=== PATIENT | male | born 1985 | race Caucasian/White ===

== ENCOUNTER 2017-07-26 09:14 | Emergency (ER) | payer OTHER, MEDICAID, SELFPAY ==
[2017-07-26 09:30] VITALS: BP 139/99; PULSE 100; RESP 14; TEMP 37.1; O2SAT 97
--- NOTE | 2017-07-26 09:44 | DI.CT.S_ITS ---
PROCEDURE: CT ABDOMEN PELVIS W CON INDICATIONS: Right lower quadrant Pain TECHNIQUE: After the administration of intravenous contrast, 5 mm thick sections acquired from the diaphragm to the symphysis. 5 mm coronal and sagittal reformats were acquired. For radiation dose reduction, the following was used: automated exposure control, adjustment of mA and/or kV according to patient size. COMPARISON: None. FINDINGS: Image quality: Excellent. ABDOMEN: Lung bases: Lung bases are clear. Heart size is normal. Solid organs: Liver is normal in size and enhancement. Gallbladder is radiographically normal. Biliary system is non dilated. Pancreas enhances normally. Spleen is normal in size and enhancement. No adrenal nodules. Kidneys demonstrate normal size and enhancement, without hydronephrosis. Peritoneum and bowel: Normal appendix. Small bowel colon are normal caliber. There is diffuse fatty infiltration throughout the colon and through a majority of the small bowel. No perforation or obstruction. Nodes and vessels: No retroperitoneal or mesenteric adenopathy by size criteria. Aorta and inferior vena cava are normal in size. Miscellaneous: No ventral hernias. PELVIS: Genitourinary: Bladder wall thickness is normal. Miscellaneous: Small fat-containing inguinal hernias. No adenopathy. Bones: No suspicious bony lesions. No vertebral body compression fractures. IMPRESSION: 1. No CT evidence of acute pathology in the abdomen or pelvis. Radiographically normal appendix. 2. Diffuse fatty infiltration of the colon and majority of the small bowel may represent chronic inflammation. Please correlate for history of inflammatory bowel disease. Dictated by: Jordy Lipscomb M.D. on 07/26/2017 at 10:52 Approved by: Jordy Lipscomb M.D. on 07/26/2017 at 10:56
[2017-07-26 09:46] VITALS: BP 165/101; PULSE 94; RESP 14; O2SAT 96
[2017-07-26 10:06] LABS: Add Manual Diff / Slide Review NO; Basophils Percent Auto 0.8 % (0-2); Eosinophils Percent Auto 3.2 % (2-4); Hematocrit 44.3 % (41-53); Hemoglobin 15.9 g/dL (13.5-17.5); Lymphocytes Percent Auto 39.4 % (25-40); Mean Corpuscular Hemoglobin 28.7 PG (26-34); Mean Corpuscular Volume 79.7 fL (80-100); Neutrophils Absolute Auto 2200 /uL (3000-5900); Neutrophils Percent Auto 45.6 % (50-75); Platelet Count 258 X10^3/uL (150-400); Red Blood Cell Count 5.56 X10^6/uL (4.5-5.9); Red Cell Distribution Width 12.8 % (11.6-14.8); White Blood Cell Count 4.9 X10^3/uL (4.5-11.0)
[2017-07-26 10:17] LABS: Alanine Aminotransferase 54 IU/L (21-72); Albumin 4.6 g/dL (3.5-5.0); Albumin Globulin Ratio 1.3 (1.0-2.8); Alkaline Phosphatase 62 U/L (38-126); Aspartate Aminotransferase 35 IU/L (17-59); BUN Creatinine Ratio 13.8 (6-22); Bilirubin Total 0.9 mg/dL (0.2-1.3); Blood Urea Nitrogen 11 mg/dL (9-20); Calcium 9.3 mg/dL (8.4-10.2); Carbon Dioxide 27 mmol/L (22-32); Chloride 100 mmol/L (98-107); Estimated Glomerular Filt Rate > 60.0 mL/min (>60); Globulin 3.6 g/dL (1.7-4.1); Glucose 101 mg/dL (70-100); HEMOLYSIS < 15 (0-50); Lipase 85 U/L (23-300); Potassium 3.6 mmol/L (3.4-5.1); Sodium 140 mmol/L (137-145); Total Protein 8.2 g/dL (6.3-8.2)
[2017-07-26 10:53] LABS: Bacteria Urine None Seen; WBC Urine None Seen (0-5/HPF)
[2017-07-26 10:57] LABS: Appearance Urine UA CLEAR; Bilirubin Urine UA NEGATIVE (NEGATIVE); Color Urine UA YELLOW; Glucose Urine UA NEGATIVE (Normal); Ketones Urine UA NEGATIVE (NEGATIVE); Leukocyte Esterase Urine UA NEGATIVE (NEGATIVE); Nitrite Urine UA Negative (Negative); Occult Blood Urine UA TRACE-LYSED (Negative); Protein Urine UA 2+ (Negative); Specific Gravity Urine UA 1.025 (1.000-1.035); Urobilinogen Urine UA 0.2 E.U./dL (0.2)
[2017-07-26 11:09] LABS: RBC Urine 1-5/HPF (0-5/HPF)
[2017-07-26 11:10] LABS: Urine Amphetamines Negative (Negative); Urine Barbiturates Negative (Negative); Urine Benzodiazepines Negative (Negative); Urine Cocaine Negative (Negative); Urine MDMA Negative (Negative); Urine Methadone Negative (Negative); Urine Methamphetamines Negative (Negative); Urine Morphine/Opi cutoff 2000 Negative (Negative); Urine Oxycodone Negative (Negative); Urine Phencyclidine Negative (Negative); Urine Tetrahydrocannabinol Positive (Negative); Urine Tricyclic Antidepressant Negative (Negative)
[2017-07-26 11:23] VITALS: BP 140/99; PULSE 87; RESP 12; O2SAT 95
--- NOTE | 2017-07-26 11:35 | ED_ITS ---
HPI - Abdominal Pain General Chief Complaint: Abdominal Pain Stated Complaint: abdominal pain History of Present Illness HPI narrative: HPI 31 y/o male w/ HTN and hypothyroidism presents for evaluation of several days of poorly characterized right lower quadrant pain with mild nausea. Patient is fevers, chills, dysuria, urinary frequency, diarrhea, constipation. No prior abdominal surgeries. M/S/F/SocHx notable for: please see HPI; remainder reviewed with patient and in chart. ROS: Negative constitutional, eye, cardiovascular, pulmonary, GI, , MSK, skin , neurologic, psychiatric, endocrine unless noted in the HPI. Exam Gen: Pleasant, non-toxic appearing, resting comfortably. HEENT: NC, AT, PEERL, EOMI. Resp: Clear to auscultation bilaterally, normal work of breathing, no accessory muscle usage. Card: Regular rate and rhythm with no murmurs, rubs, or gallops, extremities warm and well perfused. GI: mild right lower quadrant tenderness to palpation, otherwise nontender to palpation throughout all quadrants, no focal tenderness at McBurney's point, negative Doan's sign, non-distended, no rebound or guarding. : No suprapubic tenderness to palpation. MSK: No visible deformities, strength and tone without visually appreciable deficit. Skin: Normal color with no visible lesions. Neuro: AO x 3, no facial asymmetry, vision and hearing WNL. Psych: Mood and affect appropriate. Labs / Imaging: WBC 4.9, HB 15.9, sodium 140, potassium 3.6, total bilirubin 0.9, AST 35, ALT 54 , ALT 62, lipase 85. CT abdomen/pelvis: No CT evidence of acute pathology in the abdomen or pelvis. Diffuse fatty infiltration of the colon and majority of small bowel may represent chronic inflammation. Please correlate for history of inflammatory bowel disease. UA - negative nitrate, negative leukocyte esterase, 1-5 RBCs, no bacteria. UDS with THC. MDM Previous chart, nursing note, labs, imaging, and vitals reviewed. A: 31 y/o male w/ HTN and hypothyroidism presents for evaluation of several days of poorly characterized right lower quadrant pain with mild nausea. DDx: mesenteric adenitis, acute appendicitis, pseudoappendicitis, colitis, UTI, pyelonephritis, ureterolithiasis, biliary disease (biliary colic, cholecystitis , choledocholithiasis, cholangitis), pancreatitis Evaluation: no clear evidence of clinically significant acute intra-abdominal process. Physical exam with a nonsurgical abdomen, CBC, CMP, lipase, UA within clinically acceptable limits, CT and pelvis without evidence of an acute intra- abdominal process. Note was made of the diffuse fatty infiltration of the colon and small bowel. This was communicated with the patient and PCP follow-up recommended. Return to care precautions provided. ED Course: Patient was notified of their elevated blood pressure and recommended to follow up with their primary care physician. As the patient is without evidence of acute end organ dysfunction no further emergent evaluation is indicated as per the 2013 [facility] clinical policy. Impression: abdominal pain. (please reference below for remainder of encounter information) Exam Initial Vital Signs Initial Vital Signs: Vital Signs Temperature 98.7 F 07/26/17 09:30 Pulse Rate 100 H 07/26/17 09:30 Respiratory Rate 14 07/26/17 09:30 Blood Pressure 139/99 H 07/26/17 09:30 Pulse Oximetry 97 06 09:30 Course Orders Ordered: ED Orders 07/26/17 09:44 CT abdomen pelvis w con Stat 07/26/17 09:59 Complete Blood Count AUTO DIFF Stat Comprehensive Metabolic Panel Stat Lipase Stat 07/26/17 10:47 Rapid Drug Screen, Urine Stat Urinalysis and Microscopic Stat Vital Signs - 8 hr 07/26/17 09:30 07/26/17 09:46 07/26/17 11:23 Temperature 98.7 F Pulse Rate 100 H 94 H 87 Respiratory Rate 14 14 12 Blood Pressure 139/99 H Blood Pressure [Left Arm] 165/101 H 140/99 H Pulse Oximetry 97 96 95 MDM - Abdominal Pain Lab Data Result diagrams: 07/26/17 09:59 07/26/17 09:59 Lab Results 07/26/17 07/26/1718 Range/Units 09:59 09:59 10:47 WBC 4.9 (4.5-11.0) X10^3/uL RBC 5.56 (4.5-5.9) X10^6/uL Hgb 15.9 (13.5-17.5) g/dL Hct 44.3 (41-53) % MCV 79.7 L (80-100) fL MCH 28.7 (26-34) PG MCHC 36.0 (30-36) % RDW 12.8 (11.6-14.8) % Plt Count 258 (150-400) X10^3/uL Neut % (Auto) 45.6 L (50-75) % Lymph % (Auto) 39.4 (25-40) % Holmes % (Auto) 11.0 (3-14) % Eos % (Auto) 3.2 (2-4) % Baso % (Auto) 0.8 (0-2) % Neut # (Auto) 2200 L (0005-6840) /uL Sodium 140 (137-145) mmol/L Potassium 3.6 (3.4-5.1) mmol/L Chloride 100 (98-107) mmol/L Carbon Dioxide 27 (22-32) mmol/L BUN 11 (9-20) mg/dL Creatinine 0.80 (0.66-1.25) mg/dL Estimated GFR > 60.0 (>60) mL/min BUN/Creatinine Ratio 13.8 (6-22) Glucose 101 H (70-100) mg/dL Calcium 9.3 (8.4-10.2) mg/dL Total Bilirubin 0.9 (0.2-1.3) mg/dL AST 35 (17-59) IU/L ALT 54 (21-72) IU/L Alkaline Phosphatase 62 (38-126) U/L Total Protein 8.2 (6.3-8.2) g/dL Albumin 4.6 (3.5-5.0) g/dL Globulin 3.6 (1.7-4.1) g/dL Albumin/Globulin Ratio 1.3 (1.0-2.8) Lipase 85 (23-300) U/L Urine Color Urine Appearance Urine pH (4.5-8.0) Ur Specific [place] (1.000-1.035) Urine Protein (Negative) Urine Glucose (UA) (Normal) g/dL Urine Ketones (NEGATIVE) Urine Occult Blood (Negative) Urine Nitrate (Negative) Urine Bilirubin (NEGATIVE) Urine Urobilinogen (0.2) E.U./dL Ur Leukocyte Esterase (NEGATIVE) Urine RBC (0-5/HPF) Urine WBC (0-5/HPF) Urine Bacteria (None) Ur Culture Indicated? Micro UA Comment Urine Opiates Screen Negative (Negative) Ur Oxycodone Screen Negative (Negative) Urine Methadone Screen Negative (Negative) Ur Barbiturates Screen Negative (Negative) U Tricyclic Antidepress Negative (Negative) Ur Phencyclidine Scrn Negative (Negative) Ur Amphetamines Screen Negative (Negative) U Methamphetamines Scrn Negative (Negative) Ur MDMA Scrn (Ecstasy) Negative (Negative) U Benzodiazepines Scrn Negative (Negative) Urine Cocaine Screen Negative (Negative) U Marijuana (THC) Screen Positive H (Negative) 07/26/17 Range/Units 10:47 WBC (4.5-11.0) X10^3/uL RBC (4.5-5.9) X10^6/uL Hgb (13.5-17.5) g/dL Hct (41-53) % MCV (80-100) fL MCH (26-34) PG MCHC (30-36) % RDW (11.6-14.8) % Plt Count (150-400) X10^3/uL Neut % (Auto) (50-75) % Lymph % (Auto) (25-40) % Holmes % (Auto) (3-14) % Eos % (Auto) (2-4) % Baso % (Auto) (0-2) % Neut # (Auto) (8853-1729) /uL Sodium (137-145) mmol/L Potassium (3.4-5.1) mmol/L Chloride (98-107) mmol/L Carbon Dioxide (22-32) mmol/L BUN (9-20) mg/dL Creatinine (0.66-1.25) mg/dL Estimated GFR (>60) mL/min BUN/Creatinine Ratio (6-22) Glucose (70-100) mg/dL Calcium (8.4-10.2) mg/dL Total Bilirubin (0.2-1.3) mg/dL AST (17-59) IU/L ALT (21-72) IU/L Alkaline Phosphatase (38-126) U/L Total Protein (6.3-8.2) g/dL Albumin (3.5-5.0) g/dL Globulin (1.7-4.1) g/dL Albumin/Globulin Ratio (1.0-2.8) Lipase (23-300) U/L Urine Color Yellow Urine Appearance Clear Urine pH 5.0 (4.5-8.0) Ur Specific [place] 1.025 (1.000-1.035) Urine Protein 2+ H (Negative) Urine Glucose (UA) Negative (Normal) g/dL Urine Ketones Negative (NEGATIVE) Urine Occult Blood Trace-lysed (Negative) Urine Nitrate Negative (Negative) Urine Bilirubin Negative (NEGATIVE) Urine Urobilinogen 0.2 (0.2) E.U./dL Ur Leukocyte Esterase Negative (NEGATIVE) Urine RBC 1-5/hpf (0-5/HPF) Urine WBC None seen (0-5/HPF) Urine Bacteria None seen (None) Ur Culture Indicated? Not Reportable Micro UA Comment Not Reportable Urine Opiates Screen (Negative) Ur Oxycodone Screen (Negative) Urine Methadone Screen (Negative) Ur Barbiturates Screen (Negative) U Tricyclic Antidepress (Negative) Ur Phencyclidine Scrn (Negative) Ur Amphetamines Screen (Negative) U Methamphetamines Scrn (Negative) Ur MDMA Scrn (Ecstasy) (Negative) U Benzodiazepines Scrn (Negative) Urine Cocaine Screen (Negative) U Marijuana (THC) Screen (Negative)
[2017-07-26 12:17] VITALS: BP 129/91; PULSE 76; RESP 16; O2SAT 94
[2017-07-26 12:46] VITALS: BP 127/91; PULSE 84; RESP 16; O2SAT 96
[2017-07-26 13:57] VITALS: BP 126/98; PULSE 84; RESP 14; O2SAT 92
== END 2017-07-26 14:15 | disposition home or self-care (01) ==
PROVIDERS: Emergency Provider Emergency Medicine
DX: R10.9 Unspecified abdominal pain (principal)
CPT/HCPCS: 36415; 36591; 74177; 80053; 80305; 81001; 83690; 85025; 99283; 99285; Q9967